=== PATIENT | male | born 1985 | race Hispanic/Latino ===

== ENCOUNTER 2023-05-23 08:29 | Emergency (ER) | payer OTHER ==
[2023-05-23] MEDS ORDERED: Ketorolac Tromethamine 30 MG (1 mL) VIAL ONE (08:59)
[2023-05-23] MEDS ORDERED: Lidocaine 4% Patch TD SCH (09:15)
[2023-05-23] MEDS ORDERED: Transdermal Patch Removal TOP SCH (21:00)
== END 2023-05-23 10:30 | disposition home or self-care (01) ==
LOC: ERS 08:29
DX: S76.011A Strain of muscle, fascia and tendon of right hip, initial encounter (principal); Y93.B9 Activity, other involving muscle strengthening exercises
CPT/HCPCS: 96372; 99283; J1885